=== PATIENT | female | born 1985 | race Asian ===

== ENCOUNTER 2016-10-14 12:28 | Emergency (ER) | payer OTHER ==
[2016-10-14 12:41] VITALS: BP 136/82; PULSE 86; RESP 18; TEMP 98; O2SAT 98
--- NOTE | 2016-10-14 12:43 | EDPHY ---
H & P Stated Complaint: c/o Nausea/tired x 3 days Time Seen by Provider: 10/14/16 12:35 HPI/ROS: CHIEF COMPLAINT: Concerned about HISTORY OF PRESENT ILLNESS: Patient is a 31-year-old female who comes to the emergency department requesting a test. She states that for the last 2 days she has felt slightly nauseous and fatigued similar to last time she was . She states that she does not feel sick. She has not vomited. No diarrhea. No abdominal pain. Her last menstrual period was just over a month ago. REVIEW OF SYSTEMS: Constitutional: denies: chills, fever, recent illness, recent injury EENTM: denies: blurred vision, double vision, nose congestion Respiratory: denies: cough, shortness of breath Cardiac: denies: chest pain, irregular heart rate, lightheadedness, palpitations Gastrointestinal/Abdominal: See HPI Genitourinary: See HPI Musculoskeletal: denies: joint pain, muscle pain Skin: denies: lesions, rash, jaundice, bruising Neurological: denies: headache, numbness, paresthesia, tingling, dizziness, weakness Hematologic/Lymphatic: denies: blood clots, easy bleeding, easy bruising Immunologic/allergic: denies: HIV/AIDS, transplant EXAM: GENERAL: Well-appearing, well-nourished and in no acute distress. HEAD: Atraumatic, normocephalic. EYES: Pupils equal round and reactive to light, extraocular movements intact, sclera anicteric, conjunctiva are normal. ENT: TMs normal, nares patent, oropharynx clear without exudates. Moist mucous membranes. NECK: Normal range of motion, supple without lymphadenopathy or JVD. LUNGS: Breath sounds clear to auscultation bilaterally and equal. No wheezes rales or rhonchi. HEART: Regular rate and rhythm without murmurs, rubs or gallops. ABDOMEN: Soft, nontender, normoactive bowel sounds. No guarding, no rebound. No masses appreciated. BACK: No CVA tenderness, no spinal tenderness, step-offs or deformities EXTREMITIES: Normal range of motion, no pitting or edema. No clubbing or cyanosis. NEUROLOGICAL: Cranial nerves II through XII grossly intact. Normal speech, normal gait. 5/5 strength, normal movement in all extremities, normal sensation PSYCH: Normal mood, normal affect. SKIN: Warm, dry, normal turgor, no visible rashes or lesions. Source: Patient Exam Limitations: No limitations - Personal History LMP (Females 10-55): Unknown Current Tetanus Diphtheria and Acellular Pertussis (TDAP): Yes - Medical/Surgical History Hx Asthma: No Hx Chronic Respiratory Disease: No Hx Diabetes: No Hx Cardiac Disease: No Hx Renal Disease: No Hx Cirrhosis: No Hx Alcoholism: No Other PMH: denies - Family History Significant Family History: No pertinent family hx - Social History Smoking Status: Never smoked Alcohol Use: Sober Drug Use: None Constitutional: Initial Vital Signs Temperature (C) 36.6 C 10/14/16 12:37 Heart Rate 86 10/14/16 12:37 Respiratory Rate 18 10/14/16 12:37 Blood Pressure 136/82 H 10/14/16 12:37 O2 Sat (%) 98 10/14/16 12:37 O2 Delivery Mode Room Air Allergies/Adverse Reactions: No Known Allergies Allergy (Unverified 10/14/16 13:00) Home Medications: Medication Instructions Recorded NK [No Known Home Meds] 10/14/16 Medical Decision Making ED Course/Re-evaluation: 1:30 p.m. we discussed the patient's test. She declines further workup, testing medication. I recommended a multi vitamins and follow up with OBGYN. She told me that she plans to have an . She is asking for referral. Differential Diagnosis: Partial list of the Differential diagnosis considered include but were not limited to; , gastritis, insomnia and although unlikely based on the history and physical exam, I also considered infection, electrolyte abnormality , MS. I discussed these differential diagnoses and the plan with the patient as well as the usual and expected course. The patient understands that the diagnosis is provisional and that in medicine we are not always correct and that further workup is often warranted. Usual and customary warnings were given. All of the patient's questions were answered. The patient was instructed to return to the emergency department should the symptoms at all worsen or return, otherwise to followup with the physician as we discussed. Departure - Departure Disposition: Home, Routine, Self-Care Clinical Impression: Qualifiers: Weeks of gestation: less than 8 weeks Qualified Code(s): Z3A.01 - Less than 8 weeks gestation of Condition: Fair Instructions: (ED) Referrals: ISIDRO CASTRO [Other] - As per Instructions Joann Griffin MD [Medical Doctor] - As per Instructions
== END 2016-10-14 13:43 | disposition home or self-care (01) ==
LOC: CED 12:28
DX: O26.811 Pregnancy related exhaustion and fatigue, first trimester (principal); Z3A.01 Less than 8 weeks gestation of pregnancy
CPT/HCPCS: 81025-PO